=== PATIENT | male | born 1960 | race Caucasian/White ===

== ENCOUNTER 2018-01-30 13:15 | Outpatient (CLI) | payer OTHER ==
--- NOTE | 2018-01-30 16:17 | CARDIAC PROCEDURE NOTE ---
DATE OF SERVICE: 01/30/2018 Provider: MARTHA Viveros PRIMARY CARE PHYSICIAN: [facility]acey Berger MD, [facility] PROCEDURE: Cardiac treadmill stress test. PROCEDURE SYMPTOMS: Atypical chest pain and dyspnea. CARDIAC RISK FACTORS: Age and prediabetes. PREVIOUS CARDIAC PROCEDURES: ETT. CLINICAL HISTORY: A 57-year-old male without known coronary artery disease. INITIAL RESTING VITAL SIGNS: BP 144/84, heart rate 69, height 60 inches, weight 204 pounds, BMI 33.0. PROCEDURE AND FINDINGS: The patient identity and date verified. Consent signed. The patient performed treadmill exercise using a Gilberto protocol, completing 8 minutes 45 seconds, and completing an estimated workload of 10.16 metabolic equivalents. Maximal blood pressure was 210/96 with a heart rate of 158 beats per minute or 97% of maximum predicted heart rate for age. The blood pressure response to exercise was within normal limits. The patient stopped because he was tiring. The resting ECG demonstrated normal sinus rhythm with no abnormality. Maximum ST segment depression is less than 0.5 mm and upsloping. There was no ectopy. FINAL IMPRESSIONS 1. Good quality test. 2. Achieved predicted exercise time of 8:35 to 9:05. 3. Negative stress electrocardiogram for ischemia by electrocardiographic criteria. 4. Negative stress test clinically for angina. 5. No ectopy nor arrhythmia. TD: 01/30/2018 14:49 MTDEliane
[2018-01-30 16:45] VITALS: BP 144/82
--- NOTE | 2018-02-03 16:35 | XRAY Report ---
CARDIOVASCULAR TREADMILL TEST: There was no imaging performed for this exam. Procedure notes and results available in the EMR. MARYBETH
== END 2018-01-30 13:16 | disposition home or self-care (01) ==
LOC: DI 13:15
PROVIDERS: ATTEND Internal Medicine
DX: R07.89 Other chest pain (principal); R06.09 Other forms of dyspnea
CPT/HCPCS: 93016; 93017; 93018

== ENCOUNTER 2019-02-24 09:56 | Day surgery (SDC) | payer OTHER ==
[2019-02-24] MEDS ORDERED: LACTATED RINGERS 1,000 ML IV ONE ×2 (10:01→12:31)
[2019-02-24] MEDS ORDERED: LIDO GARGLE 30 ML BOTTLE ONE (11:51)
[2019-02-24] MEDS ORDERED: LIDO GARGLE 30 ML BOTTLE PO ONE (11:57)
[2019-02-24] MEDS ORDERED: fentaNYL 250 MCG/5 ML VIAL IVP ONE (12:27)
[2019-02-24] MEDS ORDERED: MIDAZOLAM 2 MG/2 ML VIAL IVP ONE (12:27)
[2019-02-24 13:37] VITALS: BP 94/52
== END 2019-02-24 09:57 | disposition home or self-care (01) ==
LOC: SDS 09:56
PROVIDERS: ATTEND Internal Medicine Gastroenterology
PROC: 0DB78ZX Excision of Stomach, Pylorus, Via Natural or Artificial Opening Endoscopic, Diagnostic (ICD-10-PCS; 2019-02-24)
PROC: 0DBN8ZZ Excision of Sigmoid Colon, Via Natural or Artificial Opening Endoscopic (ICD-10-PCS; principal; 2019-02-24 11:00)
PROC: 0DB38ZX Excision of Lower Esophagus, Via Natural or Artificial Opening Endoscopic, Diagnostic (ICD-10-PCS; 2019-02-24 11:00)
DX: Z12.11 Encounter for screening for malignant neoplasm of colon (principal); D12.5 Benign neoplasm of sigmoid colon; K57.30 Diverticulosis of large intestine without perforation or abscess without bleeding; K21.9 Gastro-esophageal reflux disease without esophagitis; K29.50 Unspecified chronic gastritis without bleeding; G47.30 Sleep apnea, unspecified
CPT/HCPCS: 43239; 45380; A9270; J3010; J7120

== ENCOUNTER 2022-06-05 14:41 | Outpatient (CLI) | payer OTHER ==
[~2022-06-05 14:41] MED LIST: GADOBUTROL 10 MMOL/10 ML VIAL ONE
[2022-06-05] MEDS ORDERED: GADOBUTROL 10 MMOL/10 ML VIAL IVP ONE (15:57)
--- NOTE | 2022-06-05 16:48 | MRI Report ---
PROCEDURE: Brain W/WO INDICATIONS: ABN GAIT CONTRAST: IV CONTRAST: Gadavist ml: 9.1 TECHNIQUE: Noncontrast axial T1 spin echo, axial T2 fast spin echo, sagittal and axial FLAIR, coronal T2 fast sp in echo, axial gradient echo, axial diffusion and ADC through the brain. After the administration of contrast, axial and coronal T1 spin echo with fat saturation through the brain. COMPARISON: None. FINDINGS: Image quality: Excellent. CSF spaces: Basal cisterns are patent. No extra-axial fluid collections. Ventricles are normal in size and shape. Brain: No midline shift. No intracranial bleeds or masses. No abnormal intracranial enhancement. There is cerebral volume loss for age. The brainstem appears normal. Diffusion-weighted images demo nstrate no acute ischemic insults. No chronic ischemic insults. Normal intravascular flow voids are present. Skull and face: Calvarial marrow is normal in signal. Orbits appear normal. Sinuses: Sinuses and mastoids appear clear. IMPRESSION: 1. No acute intracranial abnormality. 2. Mild diffuse cerebral volume loss. 3. No recent infarct. Reviewed by: Bhupendra Valiente MD on 06/05/2022 4:47 PM PDT Approved by: Bhupendra Valiente MD on 06/05/2022 4:47 PM PDT Station ID: [id number]
== END 2022-06-05 14:42 | disposition home or self-care (01) ==
LOC: DI 14:41
PROVIDERS: ATTEND Nurse Practitioner Family
DX: R26.89 Other abnormalities of gait and mobility (principal)
CPT/HCPCS: 70553; A9585

== ENCOUNTER 2023-05-29 07:54 | Outpatient (CLI) | payer OTHER ==
[2023-05-29] MEDS ORDERED: ALBUTEROL 1 PUFF INH STA (12:50)
== END 2023-05-29 07:55 | disposition home or self-care (01) ==
LOC: RT 07:54
PROVIDERS: ATTEND Nurse Practitioner Family
DX: R06.09 Other forms of dyspnea (principal)
CPT/HCPCS: 94060; 94729